=== PATIENT | female | born 1985 | race Caucasian/White ===

== ENCOUNTER 2017-12-30 10:28 | Day surgery (SDC) | payer OTHER ==
[~2017-12-30] VITALS: Ht 157.5 cm; Wt 56.2 kg
[~2017-12-30 10:28] MED LIST: ALBU90OI INH; ALBU90OI61 INH; BENZ100A PO; CEPH500 PO; CYCL10 PO; Cyclobenzaprine5 MG PO; FLONASE ALLERG9.9 ML NS; LIDO2L TOP; OMEP40CA12 PO; PROM25 PO; SPACER INH; TRAM50 PO; Zofran8 MG PO
[2017-12-30] MEDS ORDERED: Hair, Skin & N1 EACH PO (11:01)
[2018-06-21] MEDS ORDERED: IBUP800 PO (13:55)
[2018-06-21] MEDS ORDERED: IRON SULFATE PO (13:56)
[2018-06-24] MEDS ORDERED: DOCU100 PO (11:46)
[2018-06-24] MEDS ORDERED: MAGNESIUM HYDROXIDE PO (11:48)
[2018-06-24] MEDS ORDERED: Percocet 5-3251 EACH PO (11:48)
[2018-06-24] MEDS ORDERED: PROM25 PO (11:49)
[2018-06-24] MEDS ORDERED: SIME80CH PO (11:50)
== END 2017-12-30 14:32 | disposition home or self-care (01) ==
LOC: ORSCSDS 10:28
PROVIDERS: Obstetrics & Gynecology
PROC: 0UDB7ZX Extraction of Endometrium, Via Natural or Artificial Opening, Diagnostic (ICD-10-PCS; principal; 2017-12-30 11:45)
PROC: 0U5F4ZZ Destruction of Cul-de-sac, Percutaneous Endoscopic Approach (ICD-10-PCS; principal; 2017-12-30 11:45)
DX: N94.6 Dysmenorrhea, unspecified (principal); R10.2 Pelvic and perineal pain; N94.10 Unspecified dyspareunia; K21.9 Gastro-esophageal reflux disease without esophagitis
CPT/HCPCS: 88305; J0171; J0690; J1100; J2405; J2765; J3010; J7040; J7120

== ENCOUNTER 2018-04-30 11:19 | Emergency (ER) | payer OTHER ==
[~2018-04-30] VITALS: Ht 157.5 cm; Wt 57.1 kg
[~2018-04-30 11:19] MED LIST changes: +Hair, Skin & N1 EACH PO
[2018-04-30] MEDS ORDERED: MELO7.5 PO (11:34)
[2018-04-30] MEDS ORDERED: ONDA4ODT MM (12:22)
[2018-04-30] MEDS ORDERED: Esgic Tablet1 EACH PO (12:22)
== END 2018-04-30 12:31 | disposition home or self-care (01) ==
LOC: ER 11:19
DX: R51 Headache (principal); Z91.018 Allergy to other foods; Z88.5 Allergy status to narcotic agent; Z79.899 Other long term (current) drug therapy
CPT/HCPCS: 96374; 96375; 99283-25; J1885; J2405; J7030

== ENCOUNTER 2019-03-27 11:36 | Emergency (ER) | payer OTHER ==
[~2019-03-27] VITALS: Ht 157.5 cm; Wt 56.7 kg
[~2019-03-27 11:36] MED LIST changes: +DOCU100 PO; +Esgic Tablet1 EACH PO; +IBUP800 PO; +IRON SULFATE PO; +MAGNESIUM HYDROXIDE PO; +MELO7.5 PO; +ONDA4ODT MM; +Percocet 5-3251 EACH PO; +SIME80CH PO
[2019-03-27 12:31] LABS: Source, Urine Clean Catch
[2019-03-27 12:38] LABS: BASOPHILS PERCENT AUTO 2 % (0-2); EOSINOPHILS PERCENT AUTO 5 % (0-6); Hemoglobin 13.7 g/dL (11.5-16.0); IMMATURE GRAN ABSOLUTE AUTO 0.01 K/mm3 (0.00-0.10); IMMATURE GRAN PERCENT AUTO 0 % (0-1); LYMPHOCYTES ABSOLUTE AUTO 1.95 K/mm3 (0.84-5.20); LYMPHOCYTES PERCENT AUTO 33 % (21-46); MONOCYTES ABSOLUTE AUTO 0.38 K/mm3 (0.16-1.47); MONOCYTES PERCENT AUTO 7 % (4-13); Mean Corpuscular HGB 27.5 pg (26.0-34.0); Mean Corpuscular HGB Conc 32.6 g/dL (31.5-36.5); Mean Corpuscular Volume 84 fL (80-100); Mean Platelet Volume 10.9 fL (9.1-12.4); NEUTROPHILS ABSOLUTE AUTO 3.15 K/mm3 (1.96-9.15); NEUTROPHILS PERCENT AUTO 53 % (41-73); Platelet Count 271 K/mm3 (150-400); RDW Coefficient Variation 12.9 % (11.7-14.2); RDW Standard Deviation 39.4 fL (35.1-46.3); Red Blood Cell Count 4.98 M/mm3 (3.80-5.20); White Blood Cell Count 5.89 K/mm3 (4.00-11.30)
[2019-03-27 12:41] LABS: Bilirubin, Urine Neg (Neg); Blood, Urine Neg (Neg); Glucose Qualitative, Urine Neg (Neg); Ketones, Urine Neg (Neg); Leukocyte Esterase, Urine Neg (Neg); Nitrite, Urine Neg (Neg); Protein, Urine Neg (Neg); Urobilinogen, Urine NORM (Normal); pH, Urine 6.5 (5.0-8.0)
[2019-03-27 12:52] LABS: Appearance, Urine Clear (Clear); Color, Urine Yellow (P-Yellow)
[2019-03-27 12:53] LABS: Alanine Aminotransfer (ALT/SGP 20 U/L (12-78); Albumin, Blood 4.2 g/dL (3.4-5.0); Albumin/Globulin Ratio 1.4 (0.8-1.8); Alk Phos 75 U/L (50-136); Anion Gap 5 mmol/L (6-16); Aspartate Aminotrans (AST/SGOT 15 U/L (12-37); Bilirubin, Total 0.3 mg/dL (0.1-1.0); Blood Urea Nitrogen 9 mg/dL (8-24); Bun/Creatinine Ratio 14.6 (12.0-20.0); CO2, Blood 27 mmol/L (21-32); Calcium, Blood 9.1 mg/dL (8.5-10.1); Chloride, Blood 110 mmol/L (98-108); Creatinine, Blood 0.62 mg/dL (0.40-1.00); Globulin, Blood 3.1 g/dL (2.2-4.0); Glomerular Filtration Rate >60 (60-); Glucose, Blood 59 mg/dL (70-99); Potassium, Blood 4.1 mmol/L (3.5-5.5); Sodium, Blood 142 mmol/L (136-145); Total Protein, Blood 7.3 g/dL (6.4-8.2)
[2019-03-27] MEDS ORDERED: ZYRTEC10 M1 PO (13:22)
[2019-03-27] MEDS ORDERED: ONDA4ODT MM (16:11)
[2019-03-27] MEDS ORDERED: Roxicodone5 MG PO (16:24)
== END 2019-03-27 16:57 | disposition home or self-care (01) ==
LOC: ER 11:36
PROVIDERS: Emergency Medicine
DX: N83.201 Unspecified ovarian cyst, right side (principal); Z88.5 Allergy status to narcotic agent; Z91.013 Allergy to seafood; Z88.8 Allergy status to other drugs, medicaments and biological substances
CPT/HCPCS: 36415; 74177; 76830; 80053; 81003; 81025; 83690; 85025; 99284-25; Q9967

== ENCOUNTER 2019-04-02 07:22 | Day surgery (SDC) | payer OTHER ==
[~2019-04-02] VITALS: Ht 157.5 cm; Wt 56.7 kg
[~2019-04-02 07:22] MED LIST changes: +Roxicodone5 MG PO; +ZYRTEC10 M1 PO
[2019-04-02] MEDS ORDERED: [UNRECOGNIZED DRUG - REMARK] (07:45)
[2019-04-02] MEDS ORDERED: [UNRECOGNIZED DRUG - REMARK] (07:45)
[2019-04-02 08:19] LABS: BASOPHILS ABSOLUTE AUTO 0.08 K/mm3 (0.00-0.23); BASOPHILS PERCENT AUTO 1 % (0-2); EOSINOPHILS ABSOLUTE AUTO 0.66 K/mm3 (0.00-0.68); EOSINOPHILS PERCENT AUTO 6 % (0-6); Hematocrit 40.3 % (33.0-51.0); Hemoglobin 13.2 g/dL (11.5-16.0); IMMATURE GRAN ABSOLUTE AUTO 0.04 K/mm3 (0.00-0.10); IMMATURE GRAN PERCENT AUTO 0 % (0-1); LYMPHOCYTES ABSOLUTE AUTO 2.73 K/mm3 (0.84-5.20); LYMPHOCYTES PERCENT AUTO 26 % (21-46); MONOCYTES ABSOLUTE AUTO 0.56 K/mm3 (0.16-1.47); MONOCYTES PERCENT AUTO 5 % (4-13); Mean Corpuscular HGB 26.8 pg (26.0-34.0); Mean Corpuscular HGB Conc 32.8 g/dL (31.5-36.5); Mean Corpuscular Volume 82 fL (80-100); Mean Platelet Volume 11.2 fL (9.1-12.4); NEUTROPHILS ABSOLUTE AUTO 6.53 K/mm3 (1.96-9.15); NEUTROPHILS PERCENT AUTO 62 % (41-73); Platelet Count 241 K/mm3 (150-400); RDW Coefficient Variation 12.7 % (11.7-14.2); RDW Standard Deviation 38.1 fL (35.1-46.3); Red Blood Cell Count 4.92 M/mm3 (3.80-5.20)
[2019-04-02 08:53] LABS: Alanine Aminotransfer (ALT/SGP 14 U/L (12-78); Albumin, Blood 3.9 g/dL (3.4-5.0); Albumin/Globulin Ratio 1.2 (0.8-1.8); Alk Phos 69 U/L (50-136); Anion Gap 6 mmol/L (6-16); Aspartate Aminotrans (AST/SGOT 14 U/L (12-37); Bilirubin, Total 0.4 mg/dL (0.1-1.0); Blood Urea Nitrogen 10 mg/dL (8-24); Bun/Creatinine Ratio 16.2 (12.0-20.0); CO2, Blood 25 mmol/L (21-32); Calcium, Blood 8.6 mg/dL (8.5-10.1); Chloride, Blood 108 mmol/L (98-108); Creatinine, Blood 0.62 mg/dL (0.40-1.00); Globulin, Blood 3.2 g/dL (2.2-4.0); Glomerular Filtration Rate >60 (60-); Glucose, Blood 107 mg/dL (70-99); Potassium, Blood 3.4 mmol/L (3.5-5.5); Sodium, Blood 139 mmol/L (136-145); Total Protein, Blood 7.1 g/dL (6.4-8.2)
--- NOTE | 2019-04-02 12:33 | NUR ---
Patient up to Ambulate independently. Gait steady. Surgical site prepped with 2% Chlorhexidine cloth wipe. History, Chart, Medications and Allergies reviewed before start of procedure.
--- NOTE | 2019-04-02 12:57 | NUR ---
PT UP TO THE BATHROOM TO VOID AT 1245. PHENRGAN GIVEN WITH DENIAL OF NAUSEA AT THIS TIME. . AT BEDSIDE. PT HAS METAL RODS IN SPINE S/P SCOLIOSIS SURGERY A CHILD. Ambulatory in Day Surgery Surgical site prepped with 2% Chlorhexidine cloth wipe. History, Chart, Medications and Allergies reviewed before start of procedure.Lungs clear T/O to Auscultation. Patient confirms NPO status and agrees with scheduled surgery.
--- NOTE | 2019-04-02 13:55 | NUR ---
04/02/19 Sushma5 Smita Mcduffie NO PREOP ANTIBIOTICS ORDERED
--- NOTE | 2019-04-02 15:55 | NUR ---
PATIENT REQUESTS 1 TABLET OF PERCOCET PRIOR TO DISCHARGE.
--- NOTE | 2019-04-02 16:44 | NUR ---
PATIENT WITH SOME SANGENOUS DRAINAGE FROM INCISION ABOVE PUBIC BONE WITH INITIAL STANDING TO DRESS. PRESSURE APPLIED WITH 4X4 GAUZE AND ONCE BLEEDING HAD STOPPED REINFORCED WITH CLEAN 4X4 GAUZE AND PAPER TAPE. PATIENT INSTRUCTED TO APPLY PRESSURE AND NOTIFY DR DEL TORO IF IT RECURS. DISCHARGED HOME VSS VIA WC.
== END 2019-04-02 16:45 | disposition home or self-care (01) ==
LOC: ER 07:22 → SURS 07:23 → ORSCMMR 12:04 → ER 12:15 → ORSCMMR 12:16 → SURS 16:45 → ORSCMMR 16:45
PROVIDERS: Obstetrics & Gynecology; Physician Assistant
PROC: 0UT04ZZ Resection of Right Ovary, Percutaneous Endoscopic Approach (ICD-10-PCS; principal; 2019-04-02 12:45)
DX: N83.511 Torsion of right ovary and ovarian pedicle (principal); N83.201 Unspecified ovarian cyst, right side; J45.909 Unspecified asthma, uncomplicated; Z87.891 Personal history of nicotine dependence; Z79.899 Other long term (current) drug therapy
CPT/HCPCS: 36415; 76830; 80053; 83690; 85025; 88305; 96374; 96375; 96376; 99285-25; J1100; J1170; J1885; J2250; J2370; J2405; J2550; J2704; J3010; J7120

== ENCOUNTER 2020-10-06 12:27 | Emergency (ER) | payer OTHER ==
[~2020-10-06] VITALS: Ht 157.5 cm; Wt 52.2 kg
[~2020-10-06 12:27] MED LIST changes: +[UNRECOGNIZED DRUG - REMARK]; +[UNRECOGNIZED DRUG - REMARK]
[2020-10-06 12:52] LABS: Source, Urine Clean Catch
[2020-10-06 13:10] LABS: Appearance, Urine Clear (Clear); Bilirubin, Urine Neg (Neg); Blood, Urine Neg (Neg); Color, Urine Yellow (P-Yellow); Glucose Qualitative, Urine Neg (Neg); Ketones, Urine Neg (Neg); Leukocyte Esterase, Urine Neg (Neg); Nitrite, Urine Neg (Neg); Protein, Urine Neg (Neg); Urobilinogen, Urine NORM (Normal)
[2020-10-06] MEDS ORDERED: Robaxin-750750 MG PO (16:20)
[2020-10-06] MEDS ORDERED: Norco 7.5-3251 EACH PO (16:20)
== END 2020-10-06 16:29 | disposition home or self-care (01) ==
LOC: ER 12:27
PROVIDERS: Physician Assistant
DX: M54.5 Low back pain (principal); Z91.013 Allergy to seafood; Z88.8 Allergy status to other drugs, medicaments and biological substances; Z88.5 Allergy status to narcotic agent; Z87.891 Personal history of nicotine dependence
CPT/HCPCS: 72100; 81003; 99283-25; A9270-GY

== ENCOUNTER 2021-03-20 06:21 | Emergency (ER) | payer OTHER ==
[~2021-03-20] VITALS: Ht 160 cm; Wt 54.4 kg
[~2021-03-20 06:21] MED LIST changes: +Norco 7.5-3251 EACH PO; +Robaxin-750750 MG PO
== END 2021-03-20 08:07 | disposition home or self-care (01) ==
LOC: ER 06:21
DX: G43.909 Migraine, unspecified, not intractable, without status migrainosus (principal); Z88.5 Allergy status to narcotic agent; Z91.013 Allergy to seafood; Z88.8 Allergy status to other drugs, medicaments and biological substances
CPT/HCPCS: 96374; 96375; 99283-25; J1200; J1885; J2550; J7120